=== PATIENT | female | born 1995 | race Caucasian/White ===

== ENCOUNTER 2016-10-27 00:56 | Emergency (ER) | payer OTHER ==
[~2016-10-27] VITALS: Ht 160 cm; Wt 63.5 kg
[~2016-10-27 00:56] MED LIST: ZOFRAN 4MG ORALL4 MG PO
--- NOTE | 2016-10-27 01:31 | ED PSYCHIATRIC COMPLAINT ---
History of Present Illness General Chief Complaint: Psychiatric Related Complaint Stated Complaint: +SI Source: patient, old records Exam Limitations: no limitations Vital Signs & Intake/Output Vital Signs & Intake/Output Vital Signs Date Time Temp Pulse Resp B/P Pulse O2 O2 Flow FiO2 Ox Delivery Rate 10/27 1940 98.2 84 16 108/74 98 Room Air 10/27 1637 96.7 94 20 109/56 94 Room Air 10/27 1447 97.9 74 18 124/60 97 Room Air ED Intake and Output 10/28 0000 10/27 1200 Intake Total 0 Output Total Balance 0 Intake, Oral 0 Patient 140 lb Weight (RENATO MCCAIN,ASHLEY Ng) Allergies Coded Allergies: amoxicillin (Intermediate, RASH 09/29/15) Reconcile Medications Ondansetron Odt 4 MG ODT 1 TAB PO PRN NAUSEA/VOMITING (Reported) Triage Nurses Notes Reviewed? yes HPI: Patient dropped off by her friend she is going through heroin withdrawal withdrawal as well as having suicidal ideations. Patient states she usually uses multiple bundles a day but only is to have a bundle today for financial reasons. Patient states that she has not slept in the past 5 days. Patient states that she feels very anxious and jittery and nauseous and myalgias. Patient states that she was taking about asking her friend for the gun and then going to the way where her body would not be found. Patient is falling asleep in mid sentence during the history. Patient is slurring her words. (RENATO MCCAIN,ASHLEY Ng) Past History Travel History Traveled to [place] past 21 day No Medical History Any Pertinent Medical History? none Surgical History Surgical History: non-contributory Psychosocial History Who do you live with Significant Other What is your primary language Pashto Tobacco Use: Never used ETOH Use: denies use Illicit Drug Use: heroin Family History Hx Contributory? No (RENATO MCCAIN,ASHLEY Ng) Review of Systems Review of Systems Constitutional: Reports: no symptoms. EENTM: Reports: no symptoms. Respiratory: Reports: no symptoms. Cardiovascular: Reports: no symptoms. GI: Reports: no symptoms. Genitourinary: Reports: no symptoms. Musculoskeletal: Reports: no symptoms. Skin: Reports: no symptoms. Neurological/Psychological: Reports: see HPI, depressed. Hematologic/Endocrine: Reports: no symptoms. Immunologic/Allergic: Reports: no symptoms. All Other Systems: Reviewed and Negative (ASHLEY GROSS MD) Physical Exam Physical Exam General Appearance: well developed/nourished, mild distress Head: atraumatic Eyes: Bilateral: PERRL, EOMI. Ears, Nose, Throat: normal pharynx, normal ENT inspection, hearing grossly normal Neck: normal inspection, supple Respiratory: normal breath sounds Cardiovascular: regular rate/rhythm Gastrointestinal: soft, non-tender Extremities: normal range of motion Neurological/Psychiatric: no motor/sensory deficits, awake, alert, calm, oriented x 3 Appearance/Memory/Insight: appropriate appearance, appropriate insight Behavoir/Eye Contact/Speech: cooperative, good eye contact, SLURRING WORDS Thoughts/Hallucinations: normal thought pattern Skin: intact, normal color, warm/dry SAD PERSONS Done? CRISIS CONSULT OBTAINED (ASHLEY GROSS MD) Progress Differential Diagnosis: drug intoxication, drug overdose, drug withdrawal, electrolyte abnormality [facility]: GLENNA EVANS MD Endorsed Time: 07 Pending: consult (ASHLEY GROSS MD) Hand-Off Endorsed To: IRMA BLACK MD Endorsed Time: 1899 Pending: other (bed search) (GLENNA EVANS MD) Plan of Care: PATIENT TRANSFERED TO [facility] Hand-Off Pending: other (IRMA BLACK MD) Departure Departure Condition: Stable Clinical Impression Primary Impression: Opiate abuse, continuous Secondary Impressions: Depression Referrals: PATIENT HAS NO PRIMARY CARE DR (PCP/Family) Departure Forms: Customer Survey General Discharge Information (ASHLEY GROSS MD) Departure Disposition: OTHER [facility] (IRMA BLACK MD) Endorsed To: IRMA BLACK MD Endorsed Time: 1899 Pending: other (bed search) (GLENNA EVANS MD) Departure Departure Disposition: STILL A PATIENT Condition: Stable Clinical Impression Primary Impression: Opiate abuse, continuous Secondary Impressions: Depression Referrals: PATIENT HAS NO PRIMARY CARE DR (PCP/Family) Departure Forms: Customer Survey General Discharge Information (ASHLEY GROSS MD)
--- NOTE | 2016-10-27 09:08 | ED PSY CRISIS COLLATERAL NOTE ---
Collateral Note Collateral Note Family/Inform/Jonnathan Contacts: This fha underwriter contacted "person to notify" Katherine Mario [phone] for collateral information: Katherine stated she has no idea what is going on with [place] as she is an ex girlfriend of her son " Luis Carlos" and they have not been together in over 1 year. Katherine is aware of her family but has no information to give.
--- NOTE | 2016-10-27 11:03 | ED PSYCH CRISIS CONSULTATION ---
See Addendum Crisis Consult Basic Assessment Date of Consult: 10/27/16 Responsible Person/Accompanied By: friend Insurance Authorization: Insurance #1: Insurance name: MELIZA Boyce [employer] Phone number: Policy number: [id number] Group number: Authorization number: ED Provider: Patient's ED Provider: ASHLEY GROSS MD Primary Care Physician: Patient's PCP: PATIENT HAS NO PRIMARY CARE DR PCP's Phone Number: Current Psychiatrist: Pt has no current provider Chief Complaint: Psychiatric Related Complaint Patient's Quote: " I am just done. It doesn't matter ifI get help, I want to shoot myself." Present Illness: Pt is 21 yo female BIB friend to ED for SI. Pt UTOX was positive for heroin and benzos. She said she wants to use her friends gun to shoot herself. This social and political studies professor inquired which friend has gun and how she has access to it and the pt refused to disclose the information. Pt said she was hospitalized 2 weeks at [facility] and said they let her go when she was still suicidal. Pt notes a long hx of of a "tough" life but refused to give details of past tx and medications. She said she was kicked out of school, has no family and no boyfriend. Pt stated she still plans to kill herself even after she gets discharged from being inpatient. She said she has been staying with friends and is not living at the apartment listed. Pt reported her baby was taken away from her at ( 6 mos ago) due to drugs. Pt was made aware during consultation that her adoptive parents came to the hospital and pt was very agitated that they were here to see her. Pt became tearful and did not want this sign writer letterer or painter to speak with them. This sign writer letterer or painter spoke to her adoptive parents Evens and Emma face to face: Per family, pt has long standing history of issues growing up and making SI statements. She lived with them age 1-16 yo she left. Family said she had been through 5 fosters families after them. They said she has been in hospitals all across the state. DCF has always been involved. They said her biological parents have hx of substance abuse and mental illness. Per family , pt's dx by hx has been reactive attachement disorder, borderline and depression. The parents said the pt has burned all of her resources and refuses to get help/treatment/ medications and follow through with programs. [employer] was supporting her going to school ( [place]) and provided an apartment but she was not compliant with the rules ( missed classes and failed). DCF discontinued services on Sep 22, 2016. The parents confirmed she had a child 6 mos ago that was taken from her due to her heroin use. Pt is not welcome to live at home due to her risky behavior and she has been physical towards Emma. They said she has 8 biological brothers- 1 bio brother lives with Emma and Evens ( Jonathan). Adoptive parents are not aware of her friends names and or hx of boyfriends at this time as they fear them given the heavy drug use. This sign writer letterer or painter consulted with Dr. Levin and pt meets criteria for inpatient admission and was made aware there were no beds available for her. It was brought to crisis workers attention by LAMONTE Márquez that pt's boyfriend is on the unit. Pt was not informed of this. Crisis will conduct bed search. Patient's Address: [address] [place] [address] Other Phone Number: Who Do You Live With? Friend Family/Informants Interviewed: Parents Allergies - Coded Allergies: amoxicillin (Intermediate, RASH 09/29/15) Current Medications - Scheduled PRN Medications Ondansetron Odt 4 MG ODT 1 TAB PO PRN NAUSEA/VOMITING (Reported) Entered as Reported by VANDANA ROWLEY on 09/29/15 1410 Laboratory Results: Laboratory Tests 10/27/16 0640: Urine Opiates Screen > 4000.00 H, Methadone Screen 374 H, Barbiturate Screen < 60, Ur Phencyclidine Scrn 32.80 H, Amphetamines Screen 106, U Benzodiazepines Scrn > 800 H, Urine Cocaine Screen 202, Urine Cannabis Screen 44.80, Urine Color YEL, Urine Clarity CLDY H, Urine pH 6.0, Ur Specific [place] >= 1.030, Urine Protein TRACE H, Urine Ketones NEG, Urine Nitrite NEG, Urine Bilirubin NEG, Urine Urobilinogen 0.2, Ur Leukocyte Esterase NEG, Ur Microscopic SEDIMENT EXAMINED, Urine RBC 5-10 H, Urine WBC 10-15 H, Ur Epithelial Cells MANY H, Urine Bacteria MANY H, Urine Mucus MANY H, Urine Hemoglobin NEG, Urine Glucose NEG, Urine Test NEGATIVE Past History Past Medical History Psychiatric: depression Past Surgical History Surgical History: non-contributory Psychosocial History Strengths/Capabilities: Pt unable to articulate at this time. Pt's adoptive parents appear to be positive supports. Psychiatric Treatment History Psych Treatment Psychiatric Treatment Yes Inpatient Treatment Yes Outpatient Treatment Yes Location of Treatment [facility] Reason for Treatment substance abuse and depression Dates of Treatment Through out pt's lifetime Response to Treatment poor Diagnosis by History: Opiate use disorder Substance Use/Abuse History Drug Use/Abuse Substances Used/Abused Yes Substance Used/Abused Heroin First Use 15 yo Last Used last night How much used/taken 1/2 bag of heroin 4 tabs of xanax. Pt said she typically "has up to 30 bags How often daily For how long past few months Substance Abuse Treatment Substance Abuse Treatment Past Substance Abuse [place] Yes Inpatient Treatment Yes ([facility]) Outpatient Treatment Yes Location of Treatment [facility] Reason for Treatment substance abuse and depression Dates of Treatment uknown Response to Treatment Poor Comments: Pt could not give clear timeline of her subtance abuse history and treatment. She said she was supposed to go to [facility] and she did not follow through. Current Mental Status Mental Status Orientation: Person, Place, Situation Affect: Angry, Depressed, Hopeless, Lonely, Sad Speech: WNL Neuro-vegetative: Helpless, Loss of Interest Appearance Appearance- Dress/Hygiene: Pt is dressed in blue hospital gown, tearful and hair unkempt. Behaviors Thought Process: Irrational Thought Content: WNL Memory: WNL Insight: Poor SI/HI Risk Assessment Past Suicidal Ideation/Attempts Yes Current Suicidal Ideation/Att Yes Past Homicidal Ideation/Att: No Current Homicidal Ideation/Attempts No Degree of Intent: Pt states she plans to use a friend's gun Risk Factors: age (under 24/over 65), access to lethal means, high anxiety/ distress, history of suicide atmpts, SA/MH hospitalized, substance abuse, poor impulse control, weapons access Lethality Ratin PTSD Checklist PTSD Done? pt unable to participate ED Management Sitter: Yes Restraints: No DSM5/PS Stressors/Medical Prob Diagnosis' (DSM 5, Stressors, Medical): F 33.2 Major depressive disorder, severe, recurrent medical: pt denies psychosocial: unemployed, homeless, problems with primary and secondary support systems, DCF involvement with her baby Current GAF: 25 Comments: Pt presents as tearful and continues to say over and over again that she plans on killing herself once she is out from inpatient hospitalization. Departure Disposition Psych Medical Clearance Date: 10/27/16 Medically Cleared at: 924 Time Started: 924 Time Ended: 1049 Psychiatrist Consulted: Kalyan Levin MD Date Disposition Established: 10/27/16 Time Disposition Established: 1100 Plan for Disposition - Modality: Bed Search Rationale for Disposition: Pt presents with plan to kill herself by using a gun and states she has access to lethal weapon and refuses to disclose where the gun is and how she has access. Crisis workers were made aware by the ED RN Yulisa that the pt's boyfriend is on the unit CPS. Pt is not aware of this and bed search is being conducted. Type of IP Admission: Voluntary Referrals PATIENT HAS NO PRIMARY CARE DR (PCP/Family)
[2016-10-27 19:40] VITALS: BP 108/74
== END 2016-10-27 20:15 | disposition other institution (70) ==
LOC: ERH 00:56
DX: F11.10 Opioid abuse, uncomplicated (principal); F32.9 Major depressive disorder, single episode, unspecified
CPT/HCPCS: 80307; 81001; 81025; G0463

== ENCOUNTER 2018-01-05 11:32 | Emergency (ER) | payer OTHER ==
[~2018-01-05] VITALS: Ht 160 cm; Wt 65.8 kg
[~2018-01-05 11:32] MED LIST changes: +CLEOCIN HCL300 M1 PO; +KETOROLAC TROME10 M1 PO
[2018-01-05] MEDS ORDERED: METHADONE HCL10 M1 PO (11:51)
[2018-01-05 12:23] LABS: ABSOLUTE BASOPHIL COUNT 0 /CUMM (0.0-0.2); ABSOLUTE EOSINOPHIL COUNT 0.3 /CUMM (0.0-0.7); ABSOLUTE GRANULOCYTE CT 8.8 /CUMM (1.4-6.5); ABSOLUTE LYMPH COUNT 2.4 /CUMM (1.2-3.4); ABSOLUTE MONOCYTE COUNT 0.8 /CUMM (0.10-0.60); BASOPHIL % 0.3 % (0.0-2.0); EOSINOPHIL % 2.1 % (0-5); GRANULOCYTE % 71.6 % (42.2-75.2); HEMATOCRIT 42.1 % (37-47); MEAN CORPUSCULAR HGB 30.8 PG (27.0-31.0); MEAN CORPUSCULAR VOLUME 88.1 FL (81.0-99.0); MEAN PLATELET VOLUME 9.7 FL (7.4-10.4); PLATELET COUNT 231 /CUMM (130-400); RBC DISTRIBUTION WIDTH 12.6 % (11.5-14.5); RED BLOOD CELL CT 4.78 /CUMM (4.20-5.40); WHITE BLOOD CELL COUNT 12.3 /CUMM (4.8-10.8)
--- NOTE | 2018-01-05 12:53 | ED GENERAL ADULT ---
History of Present Illness General Chief Complaint: Abdominal Pain/Flank Pain Stated Complaint: ABD PAIN Source: patient Exam Limitations: no limitations Vital Signs & Intake/Output Vital Signs & Intake/Output Vital Signs Date Time Temp Pulse Resp B/P B/P Pulse O2 O2 Flow FiO2 Mean Ox Delivery Rate 01/05 1439 98.6 76 18 122/85 98 Room Air 01/05 1206 Room Air 01/05 1144 98.3 80 18 153/74 98 Room Air Allergies Coded Allergies: amoxicillin (Intermediate, RASH 09/29/15) Reconcile Medications Clindamycin HCl (Cleocin HCl) 300 MG CAPSULE 1 CAP PO TID DENTAL INFECTION Ketorolac Tromethamine 10 MG TABLET 1 TAB PO Q6P PRN TOOTHPAIN PATIENT RECEIVED im KETOROLAC IN THE EMERGENCY DEPARTMENT Methadone Hydrochloride (Methadone HCl) 10 MG TABLET 6 TAB PO D ADDICTION ( Reported) Metronidazole (Flagyl) 500 MG TABLET 1 TAB PO TID C DIFF Ondansetron HCl (Zofran) 4 MG TABLET 1 TAB PO Q6-8P NAUSEA Ondansetron Odt 4 MG ODT 1 TAB PO PRN NAUSEA/VOMITING (Reported) Triage Note: RECEIVED 22 YO FEMALE C/O NAUSEA, VOMITING AND DIARRHEA X 5 DAYS WITH LOWER ABDOMINAL PAIN X 2 DAYS. PT UNABLE TO TOLERATE PO. PT SEEN IN [facility] 2X RECENTLY AND INSTRUCTED TO COME TO THE ED. + WEAKNESS. Triage Nurses Notes Reviewed? yes Onset: Abrupt Duration: week(s): Timing: recent history : No Patient currently breastfeeds: No HPI: 01/05/18 22-year-old female presents to the emergency department complaining of lower abdominal pain nausea vomiting and diarrhea. She was recently seen in urgent care center 2. She was referred to the emergency department to rule out appendicitis. She denies dysuria or vaginal discharge. Recent test was negative according to patient. Past History Travel History Traveled to [place] past 21 day No Medical History Any Pertinent Medical History? see below for history Neurological: NONE EENT: NONE Cardiovascular: NONE Respiratory: NONE Gastrointestinal: NONE Hepatic: NONE Renal: NONE Musculoskeletal: NONE Psychiatric: DEPRESSION1 Endocrine: NONE Blood Disorders: NONE Cancer(s): NONE Surgical History Surgical History: non-contributory Psychosocial History Who do you live with Friend What is your primary language Kazakh Tobacco Use: Current Daily Use Daily Tobacco Use Amount/Type: => 5 Cigarettes daily Family History Hx Contributory? No Review of Systems Review of Systems Constitutional: Denies: fever. EENTM: Reports: no symptoms. Respiratory: Denies: short of breath. Cardiovascular: Denies: chest pain. GI: Reports: abdominal pain, diarrhea, nausea, vomiting. Denies: bloody stool. Genitourinary: Reports: no symptoms. Musculoskeletal: Reports: no symptoms. Skin: Reports: no symptoms. Neurological/Psychological: Reports: no symptoms. Hematologic/Endocrine: Reports: no symptoms. Immunologic/Allergic: Reports: no symptoms. Physical Exam Physical Exam General Appearance: well developed/nourished, alert, awake, anxious, mild distress Head: atraumatic, normal appearance Eyes: Bilateral: normal appearance, PERRL, EOMI. Ears, Nose, Throat: normal pharynx, normal ENT inspection Neck: normal inspection, supple, full range of motion Respiratory: normal breath sounds, chest non-tender, no respiratory distress Cardiovascular: regular rate/rhythm Peripheral Pulses: 4+ radial (R), 4+ radial (L) Gastrointestinal: soft, tenderness (SUPRAPUBIC) Back: normal range of motion Extremities: normal inspection, no edema Neurologic/Psych: no motor/sensory deficits, awake, alert, oriented x 3 Skin: intact, normal color, warm/dry Core Measures ACS in differential dx? No CVA/TIA Diagnosis: No Sepsis Present: No Sepsis Focused Exam Completed? No Progress Differential Diagnoses I considered the following diagnoses in my evaluation of the patient: Appendicitis, diverticulitis, colitis, infectious diarrhea, C. difficile, UTI, pyelonephritis, PID, cervicitis Plan of Care: Orders Procedure Date/time Status Add-on Test (ER Only) 01/05 1356 Active CHLAMYDIA-GC DNA PROBE 01/05 1215 Active URINALYSIS 01/05 1144 Complete LIPASE 01/05 1144 Complete LACTIC ACID 01/05 1144 Complete HUMAN BETA HCG SCREEN 01/05 1144 Complete COMPREHENSIVE METABOLIC PANEL 01/05 1144 Complete CBC WITHOUT DIFFERENTIAL 01/05 1144 Complete AMYLASE 01/05 1144 Complete Laboratory Tests 01/05/18 1444: Lactic Acid Cancelled 01/05/18 1215: Urine Color YEL, Urine Clarity CLDY H, Urine pH 6.0, Ur Specific [place] 1.015, Urine Protein TRACE H, Urine Ketones NEG, Urine Nitrite NEG, Urine Bilirubin NEG@ICTO, Urine Urobilinogen 0.2, Ur Leukocyte Esterase TRACE H, Ur Microscopic SEDIMENT EXAMINED, Urine RBC 1-3, Urine WBC 5-10 H, Ur Epithelial Cells MANY H , Urine Bacteria MOD H, Urine Hemoglobin TRACE-LYSED, Urine Glucose NEG 01/05/18 1200: Anion Gap 15, Estimated GFR > 60, BUN/Creatinine Ratio 4.3 L, Glucose 98, Lactic Acid 0.9, Calcium 10.2, Total Bilirubin 0.6, AST 17, ALT 21, Alkaline Phosphatase 80, Total Protein 7.4, Albumin 4.3, Globulin 3.1, Albumin/Globulin Ratio 1.4, Amylase 46, Lipase 57, Total Beta HCG NEGATIVE, CBC w Diff NO MAN DIFF REQ, RBC 4.78, MCV 88.1, MCH 30.8, MCHC 35.0, RDW 12.6, MPV 9.7, Gran % 71.6, Lymphocytes % 19.4 L, Monocytes % 6.6, Eosinophils % 2.1, Basophils % 0.3 , Absolute Granulocytes 8.8 H, Absolute Lymphocytes 2.4, Absolute Monocytes 0.8 H, Absolute Eosinophils 0.3, Absolute Basophils 0 Microbiology 01/05 1215 URINE ROUT: GC DNA Probe - RECD 01/05 1215 URINE ROUT: Chlamydia DNA Probe (AMY) - RECD 01/05 1148 STOOL: Clostridium difficile Toxin A & B - CAN Cancelled: Cancelled via OE: Per MD Decision Initial ED EKG: none Departure Departure Disposition: HOME OR SELF CARE Condition: Stable Clinical Impression Primary Impression: Abdominal pain Secondary Impressions: Colitis Referrals: Patient Has No Primary Care Dr (PCP/Family) Departure Forms: Customer Survey General Discharge Information Prescriptions: Current Visit Scripts Metronidazole (Flagyl) 1 TAB PO TID #30 TAB Ondansetron HCl (Zofran) 1 TAB PO Q6-8P #8 TAB Comments PATIENT: BENJAMIN RODRIGUEZ PRESENT AGE: 22 PATIENT ACCOUNT NO: [id number] : 96 LOCATION: [facility] ORDERING PHYSICIAN: Chivo MCDONOUGH SERVICE DATE: 01/05/18-1146 EXAM TYPE: CAT - CT ABD & PELVIS W IV CONTRAST EXAMINATION: CT ABDOMEN AND PELVIS WITH CONTRAST CLINICAL INFORMATION: Abdominal pain. Cramping. Vomiting. Diarrhea. Rule out colitis. COMPARISON: None TECHNIQUE: Multidetector volumetric imaging was performed of the abdomen and pelvis following IV administration of 94 mL of Optiray 320 intravenous contrast. Sagittal and coronal reformatted images were obtained on the technologist's workstation. DLP: 264 mGy-cm FINDINGS: LUNG BASES: The visualized lung bases are unremarkable. LIVER, GALLBLADDER, AND BILIARY TREE: The liver is normal in size, shape, and attenuation. No focal hepatic lesion or biliary ductal dilatation is present. The gallbladder is unremarkable with no evidence of radiopaque gallstones, gallbladder wall thickening, or obvious pericholecystic inflammatory changes. PANCREAS: Unremarkable. SPLEEN: Unremarkable. ADRENAL GLANDS: Unremarkable. KIDNEYS AND URETERS: The kidneys are normal in size, shape, and attenuation. No hydronephrosis, hydroureter, or calculi seen. No perinephric stranding. BLADDER: Decompressed. GASTROINTESTINAL TRACT: Stomach, small bowel, and colon are normal in caliber. Appendix is normal in appearance. The descending and sigmoid colon are decompressed, and the bowel wall appears slightly thickened. No significant pericolonic fat stranding. Foci of dense contrast material present within the small bowel and stomach. No intraperitoneal free fluid or free air. ABDOMINAL WALL: No significant hernia is appreciated. LYMPH NODES: Normal. VASCULAR: Unremarkable. PELVIC VISCERA: Uterus is retroverted. Ovaries are unremarkable. OSSEOUS STRUCTURES: Unremarkable. IMPRESSION: 1. Mild wall thickening in the descending and sigmoid colon may suggesting mild colitis. Specificity is limited as the colon is decompressed distally. No significant surrounding pericolonic inflammatory changes. 2. Otherwise normal CT of the abdomen and pelvis. DICTATED BY: Bhaskar Ybarra MD DATE/TIME DICTATED:01/05/181340 CLINICAL IMMUNOLOGIST:CHRISTINA DATE/TIME TRANSCRIBED:01/05/181340 CONFIDENTIAL, DO NOT COPY WITHOUT APPROPRIATE AUTHORIZATION. <Electronically signed in Other Vendor System> SIGNED BY: Bhaskar Ybarra MD 01/05/18 3615 The patient was treated with Flagyl, Zofran, by mouth fluids. She will follow- up with her doctor on Wednesday. Call me for the results of outpatient stool sample testing. Critical Care Note Critical Care Note Critical Care Time: non-applicable
--- NOTE | 2018-01-05 13:52 | CT SCAN REPORT ---
EXAMINATION: CT ABDOMEN AND PELVIS WITH CONTRAST CLINICAL INFORMATION: Abdominal pain. Cramping. Vomiting. Diarrhea. Rule out colitis. COMPARISON: None TECHNIQUE: Multidetector volumetric imaging was performed of the abdomen and pelvis following IV administration of 94 mL of Optiray 320 intravenous contrast. Sagittal and coronal reformatted images were obtained on the technologist's workstation. DLP: 264 mGy-cm FINDINGS: LUNG BASES: The visualized lung bases are unremarkable. LIVER, GALLBLADDER, AND BILIARY TREE: The liver is normal in size, shape, and attenuation. No focal hepatic lesion or biliary ductal dilatation is present. The gallbladder is unremarkable with no evidence of radiopaque gallstones, gallbladder wall thickening, or obvious pericholecystic inflammatory changes. PANCREAS: Unremarkable. SPLEEN: Unremarkable. ADRENAL GLANDS: Unremarkable. KIDNEYS AND URETERS: The kidneys are normal in size, shape, and attenuation. No hydronephrosis, hydroureter, or calculi seen. No perinephric stranding. BLADDER: Decompressed. GASTROINTESTINAL TRACT: Stomach, small bowel, and colon are normal in caliber. Appendix is normal in appearance. The descending and sigmoid colon are decompressed, and the bowel wall appears slightly thickened. No significant pericolonic fat stranding. Foci of dense contrast material present within the small bowel and stomach. No intraperitoneal free fluid or free air. ABDOMINAL WALL: No significant hernia is appreciated. LYMPH NODES: Normal. VASCULAR: Unremarkable. PELVIC VISCERA: Uterus is retroverted. Ovaries are unremarkable. OSSEOUS STRUCTURES: Unremarkable. IMPRESSION: 1. Mild wall thickening in the descending and sigmoid colon may suggesting mild colitis. Specificity is limited as the colon is decompressed distally. No significant surrounding pericolonic inflammatory changes. 2. Otherwise normal CT of the abdomen and pelvis.
[2018-01-05 14:39] VITALS: BP 122/85
[2018-01-05] MEDS ORDERED: FLAGYL500 MG PO (14:39)
[2018-01-05] MEDS ORDERED: ZOFRAN4 M2 PO (14:39)
== END 2018-01-05 14:39 ==
LOC: ERH 11:32
PROVIDERS: Physician Assistant Medical
DX: K52.9 Noninfective gastroenteritis and colitis, unspecified (principal); R11.2 Nausea with vomiting, unspecified; R19.7 Diarrhea, unspecified; R10.30 Lower abdominal pain, unspecified
CPT/HCPCS: 74177; 81001; 87015; 87045; 87491; 87591; 87899; 87899-59; 96374; 96375; J1885; J2405